=== PATIENT | female | born 1965 | race Caucasian/White ===

== ENCOUNTER 2023-04-28 17:53 | Emergency (ER) | payer MEDICAID ==
[~2023-04-28] VITALS: Ht 160 cm; Wt 93.2 kg
[~2023-04-28 17:53] MED LIST: CYCL-394 PO; HYDR1TAB PO; MOT200T PO; NO HOME MEDS; TRAM50TA2 PO
[2023-04-28] MEDS ORDERED: vancomycin 1,750 MG in NS 350ml IV soln IV ONE (21:45)
[2023-04-28 21:54] LABS: MEAN PLATELET VOLUME 7.3 FL (7.4-10.4)
[2023-04-28 21:55] VITALS: TEMP 97.2
[2023-04-28 21:56] LABS: BASOPHILS # (AUTO) 0.1 X10'3 (0-0.2); EOSINOPHILS # (AUTO) 0.7 X10'3 (0-0.9); EOSINOPHILS % (AUTO) 7.9 % (0-6); HEMATOCRIT 36.2 % (35.0-45.0); HEMOGLOBIN 11.8 g/dl (12.0-16.0); LYMPHOCYTES # (AUTO) 2.1 X10'3 (1.1-4.8); LYMPHOCYTES % (AUTO) 23.3 % (21-51); MEAN CORPUSCULAR HEMOGLOBIN 27.5 PG (27.0-31.0); MEAN CORPUSCULAR HGB CONC 32.5 g/dL (33.0-36.5); MEAN CORPUSCULAR VOLUME 84.6 FL (78-98); MONOCYTES # (AUTO) 0.7 X10'3 (0-0.9); MONOCYTES % (AUTO) 8.2 % (2-12); NEUTROPHILS # (AUTO) 5.3 X10'3 (1.8-7.7); NEUTROPHILS % (AUTO) 59.6 % (42-75); PLATELET COUNT 326 X10'3 (140-440); RED BLOOD COUNT 4.28 X10'6 (4.20-5.60); RED CELL DISTRIBUTION WIDTH 14.7 % (11.5-14.5); WHITE BLOOD COUNT 8.9 X10'3 (4.5-11.0)
[2023-04-28 22:08] LABS: ALANINE AMINOTRANSFERASE 19 U/L (12-78); ALBUMIN 2.9 G/DL (3.4-5.0); ALBUMIN/GLOBULIN RATIO 0.6 (1.1-1.5); ALKALINE PHOSPHATASE 112 IU/L (46-116); ANION GAP 8 (8-16); ASPARTATE AMINO TRANSFERASE 18 U/L (10-37); BILIRUBIN,TOTAL 0.1 MG/DL (0.1-1.0); BLOOD UREA NITROGEN 19 MG/DL (7-18); BUN/CREATININE RATIO 16.2 (10.0-20.0); C-REACTIVE PROTEIN 12.59 MG/DL (0.0-0.5); CHLORIDE 105 MMOL/L (99-107); CREATININE 1.17 MG/DL (0.40-0.90); GLUCOSE 86 MG/DL (70-104); MAGNESIUM 2.2 MG/DL (1.5-2.4); POTASSIUM 3.7 MMOL/L (3.5-5.1); SODIUM 140 MMOL/L (135-145); TOTAL CARBON DIOXIDE 27.3 MMOL/L (24-32); TOTAL PROTEIN 7.6 G/DL (6.4-8.2); eCRCL 43 ML/MIN; eGFR 47 ML/MIN
--- NOTE | 2023-04-28 23:26 | NUR ---
asked by primary RN to start an IV. asked pt is she is right or left handed. pt stated was right handed. removed old tape from prior blood draw from left AC area to examine arm for IV start. pt yelled at this RN for removing the tape. pt proceded to explain that she has "sensitive skin" and all the reasons of why. this RN started IV with first attempt to left AC and while taping IV in place, pt stated "who is your treatment supervisor". informed pt of charge nurse's name. pt requested to speak with superviser regarding my "shitty bedside manner". primary nurse notified, charge master coordinator notified.
[2023-04-29] MEDS: piperacillin/tazo 3.375gm/50ml 50 ML IV SCH ×2 (00:10→07:58)
--- NOTE | 2023-04-29 01:35 | NUR ---
0100 PT IS REFUSING TO PROVIDE URINE SPEC "I DON'T HAVE TO GO YET" DESPITE PROVIDING GLASS OF WATER, AT PT'S REQUEST, STATING " IF YOU GIVE ME SOMETHING TO DRINK I'LL GO" [facility] [place] PROVIDED WITH DRINK. 0140 PT WAS INFORMED WITHOUT SPEC, A CATHETER WILL BE USED TO OBTAIN SPEC, TO WHICH SHE STATED "THAT WILL NEVER HAPPEN"
[2023-04-29 03:09] LABS: URINE HCG NEGATIVE (NEG)
[2023-04-29 03:14] LABS: BILIRUBIN,URINE NEGATIVE (Neg); CLARITY,URINE SLIGHTLY CLOUDY (Clear); COLOR,URINE YELLOW (Yellow); GLUCOSE, URINE NEGATIVE (Neg); KETONES,URINE NEGATIVE (Neg); LEUKOCYTE ESTERASE ,URINE TRACE (Neg); NITRITES, URINE POSITIVE (Neg); OCCULT BLOOD,URINE NEGATIVE (Neg); PROTEIN,URINE NEGATIVE (Neg); UROBILINOGEN,URINE 0.2 E.U/dL (0.2-1.0)
[2023-04-29 03:27] LABS: UA COLLECTION TYPE VOIDED
[2023-04-29 03:34] LABS: BACTERIA,URINE 4+ /HPF (Neg); MUCUS STRANDS FEW /LPF (Neg); RBC,URINE 0-2 /HPF (0-2); SQUAMOUS EPITHELIAL CELL,UR MODERATE /LPF (FEW); TRANSITIONAL EPI CELLS,URINE FEW /HPF
[2023-04-29] MEDS ORDERED: VANCOMYCIN 1,500MG inj. 1,500 MG in normal saline 500ml IV soln 300 ML IV SCH (08:00)
[2023-04-29] MEDS ORDERED: morphine 4 MG/ML inj SYRINge IV ONE ×3 (11:50→15:55)
--- NOTE | 2023-04-29 12:40 | NUR ---
I called Angio/IR to follow up regarding order for arthrocentesis that was ordered. Enrique and Franklin at IR both told me that the order category should say angio for them to do it. I was advised to pick the arthrogram and make a side comment about the arthrocentesis
--- NOTE | 2023-04-29 12:52 | NUR ---
Patient has been instructed about urine sample. The bedside commode this morning has already been empty as patient stated the urine was sitting there since last night Addendum: 04/29/23 at 1256 by REJI Called the lab to request include the urine drug screen order to the recent urine sample that was sent
[2023-04-29 13:08] VITALS: BP 139/58; PULSE 73; RESP 18; O2SAT 94
--- NOTE | 2023-04-29 13:17 | NUR ---
IR Team at bedside doing arthrocentesis of left hip. Morphine 4 mg IV administered during the procedure
[2023-04-29 13:30] VITALS: BP 133/61; PULSE 80; RESP 16; O2SAT 95
[2023-04-29 13:36] LABS: URINE AMPHETAMINE SCREEN POSITIVE (Neg); URINE BARBITUATE SCREEN NEGATIVE (Neg); URINE BENZODIAZEPINES SCREEN NEGATIVE (Neg); URINE CANNABINOID SCREEN POSITIVE (Neg); URINE COCAINE SCREEN NEGATIVE (Neg); URINE OPIATE SCREEN POSITIVE (Neg); URINE PHENCYCLIDINE SCREEN NEGATIVE (Neg)
[2023-04-29] MEDS ORDERED: piperacillin/tazo 3.375gm/50ml 50 ML IV SCH (16:00)
[2023-04-29] MEDS ORDERED: SULF1TAB49 PO (16:41)
[2023-04-29] MEDS ORDERED: CLIN-97 PO (16:41)
--- NOTE | 2023-04-29 17:18 | NUR ---
Faxed late meal tray request for patient's dinner
== END 2023-04-29 18:45 | disposition home or self-care (01) ==
LOC: ER 17:54
DX: L02.416 Cutaneous abscess of left lower limb (principal)
CPT/HCPCS: 10160; 36415; 71045; 73502; 73700; 76942; 80053; 80305; 81001; 81025; 83605; 83735; 84145; 85025; 85651; 86140; 87040; 87070; 87077; 87088; 87186; 93005; 96365; 96366; 96367; 96368; 96375; 96376; 99285; C1729; J2270; J2543; J3370; J7040; A4421; A6258

== ENCOUNTER 2024-07-09 10:14 | Emergency (ER) | payer MEDICARE, MEDICAID ==
[~2024-07-09] VITALS: Ht 162.6 cm; Wt 104.5 kg
[~2024-07-09 10:14] MED LIST changes: +CLIN-97 PO
[2024-07-09 11:01] VITALS: BP 132/78; PULSE 78; RESP 16; TEMP 98.5; O2SAT 96
== END 2024-07-09 11:06 | disposition home or self-care (01) ==
LOC: ER 10:15
DX: R05.9 Cough, unspecified (principal); F17.200 Nicotine dependence, unspecified, uncomplicated; Z91.041 Radiographic dye allergy status; Z98.890 Other specified postprocedural states
CPT/HCPCS: 99282